=== PATIENT | female | born 1980 | race American Indian/Alaskan Native ===

== ENCOUNTER 2018-11-15 18:28 | Emergency (ER) | payer OTHER ==
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
[2018-11-15 19:02] VITALS: BP 135/94
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
[2018-11-15] MEDS ORDERED: NORCO 5/325 PO ONE (22:00)
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
== END 2018-11-15 22:50 | disposition home or self-care (01) ==
LOC: ED 18:28
DX: S90.32XA Contusion of left foot, initial encounter (principal); W18.30XA Fall on same level, unspecified, initial encounter; Y93.89 Activity, other specified; Y92.89 Other specified places as the place of occurrence of the external cause; Y99.8 Other external cause status